=== PATIENT | male | born 1985 | race Caucasian/White ===

== ENCOUNTER → 2019-08-12 | Emergency (ER) | payer OTHER ==
[~2019-08-12] VITALS: Ht 170.2 cm; Wt 65.8 kg
[~2019-08-12] MED LIST: IBUPROFEN600 MG ORAL
--- NOTE | 2019-08-12 10:10 | NUR ---
ED Nurse Note: patient walked into ED with crutches from home, reports right foot injury by twisting while he was doing windsurfing yesterday. patient is alert awake x 4 breathing unlabored and even.
--- NOTE | 2019-08-12 11:34 | Diagnostic Imaging Report ---
Indication: Right foot pain Comparison: None Findings: 3 views of the right foot were obtained. No acute fractures, malalignment, erosions or periostitis are identified. Impression: No acute findings.
--- NOTE | 2019-08-12 11:40 | Emergency Room Report ---
History of Present Illness General Chief Complaint: Lower Extremity Injury Source: Patient Present Illness HPI Patient is a 34-year-old male denies any significant past medical history who presents to the ER complaining of right foot pain. Patient states that he was windsurfing in [place] yesterday and twisted his foot. He states that he wrapped himself used crutches and flew back to [place] and now presents here. He denies any head trauma or loss of consciousness. He denies any other symptoms. He is declining any pain medication in the ER. Allergies: Coded Allergies: No Known Allergies (Unverified , 08/12/19) Patient History Past Medical History: none Past Surgical History: other - Right wrist Social History: Denies: smoking, alcohol use, drug use Nursing Documentation-[facility] Past Medical History: No Stated History Review of Systems All Other Systems: negative except mentioned in HPI Physical Exam Vital Signs Date Time Temp Pulse Resp B/P (MAP) Pulse Ox O2 Delivery O2 Flow Rate FiO2 08/12/19 10:02 98.4 69 17 130/81 (97) 99 Room Air Sp02 EP Interpretation: reviewed, normal General Appearance: no apparent distress, alert, GCS 15, non-toxic Head: normocephalic, atraumatic Eyes: bilateral eye normal inspection, bilateral eye PERRL ENT: hearing grossly normal, normal pharynx, no angioedema, normal voice Neck: full range of motion, supple/symm/no masses Respiratory: chest non-tender, lungs clear, normal breath sounds, speaking full sentences Cardiovascular #1: regular rate, rhythm, no edema Gastrointestinal: normal bowel sounds, non tender, soft, non-distended, no guarding, no rebound Rectal: deferred Genitourinary: normal inspection, no CVA tenderness Musculoskeletal: back normal, calf tenderness, gait/station normal, other - Right midfoot diffuse tenderness and mild swelling with no obvious deformity and normal range of motion Neurologic: alert, motor strength/tone normal, oriented x3, sensory intact, responsive, speech normal Psychiatric: judgement/insight normal, memory normal, mood/affect normal, no suicidal/homicidal ideation Skin: no rash Lymphatic: no adenopathy Medical Decision Making Diagnostic Impression: Primary Impression: Foot sprain ER Course Should not presents with crutches. X-ray demonstrates no acute fracture. Patient's foot will be Ramone wrapped and patient can follow-up with his primary care physician for further treatment and evaluation. After discussing risks and benefits of further diagnostics, treatment plans, as well as indications for and risks of admission, the patient is agreeable to being discharged home. I have explained that their evaluation and treatment in the emergency department today is an important step towards them achieving better health but that their evaluation today is not intended to replace further evaluation and treatment by a physician in their local clinic. I have explained that while the current findings suggest no immediate life threatening emergency they will require further evaluation and treatment by a physician of their choice in their area. They understand that it will be necessary for them to review the final reports of their ED visit with their clinic physician. We have reviewed indications for return to the Emergency Department. I have explained that additional time may need to pass and/or additional testing as an outpatient may be necessary before a definitive diagnosis can be made. They tell me they are willing to follow up as instructed within the timeframe I recommend. They appear to understand what we discussed. Additionally they understand that if they are unable to be seen by an outpatient physician they are welcome, and in fact should, return to the Emergency Department for a repeat evaluation. The patient is stable at time of discharge. Last Vital Signs Date Time Temp Pulse Resp B/P (MAP) Pulse Ox O2 Delivery O2 Flow Rate FiO2 08/12/19 10:02 98.4 69 17 130/81 (97) 99 Room Air Disposition: HOME, SELF-CARE Condition: Stable Scripts Ibuprofen* (MOTRIN*) 600 Mg Tablet 600 MG ORAL Q8H PRN for For Pain, #30 TAB 0 Refills Prov: Meghana Emanuel M.D. 08/12/19 Referrals: [facility] Patient Instructions: Foot Sprain Additional Instructions: Patient discharged in stable improved condition with outpatient follow-up and strict return precautions Meghana Emanuel M.D. Aug 12, 2019 11:40
[2019-08-12 11:56] VITALS: BP 130/81
--- NOTE | 2019-08-12 11:57 | NUR ---
ER DISCHARGE NOTE: Patient is cleared to be discharged per ERMD DR DAVE, pt is aox4, on room air, with stable vital signs. pt was given dc and prescription instructions, pt was able to verbalize understanding, pt id band removed without complications. pt is able to ambulate with steady gait. pt took all belongings. carina wrap and crutches provided by [employer], appropriate educations provided to the patient, patient verbalized understanding and demonstrated proper use of crutches.
== END | disposition home or self-care (01) ==
LOC: EMR 12:00
DX: S93.601A Unspecified sprain of right foot, initial encounter (principal); X50.1XXA Overexertion from prolonged static or awkward postures, initial encounter; Y93.18 Activity, surfing, windsurfing and boogie boarding; Y92.9 Unspecified place or not applicable
CPT/HCPCS: 99283